=== PATIENT | male | born 1955 | race Caucasian/White ===

== ENCOUNTER 2017-09-05 09:21 | Emergency (ER) | payer OTHER ==
--- NOTE | 2017-09-05 09:45 | EDM.PDOC ---
ED HPI GENERAL MEDICAL PROBLEM - General Chief Complaint: Respiratory Problem Stated Complaint: cough, chills Time Seen by Provider: 09/05/17 09:24 Source of Information: Reports: Patient History Limitations: Reports: No Limitations - History of Present Illness INITIAL COMMENTS - FREE TEXT/NARRATIVE: Patient presents with cough, chills, sore throat and body aches that started yesterday. He did have the flu shot this season he says. He didn't check his temperature at home. Julian pretty rough all night and didn't sleep much. - Related Data Allergies Allergy/AdvReac Type Severity Reaction Status Date / Time No Known Drug Allergies Allergy Cannot Verified 09/05/17 09:42 Remember No Known Drug Intolerances Allergy Cannot Verified 09/05/17 09:42 Remember ED ROS GENERAL - Review of Systems Review Of Systems: See Below Constitutional: Reports: Chills HEENT: Reports: Throat Pain. Denies: Ear Discharge, Ear Pain, Vision Change Respiratory: Reports: Cough, Sputum. Denies: Shortness of Breath Cardiovascular: Denies: Chest Pain, Lightheadedness, Syncope GI/Abdominal: Denies: Abdominal Pain, Diarrhea, Vomiting : Denies: Dysuria Musculoskeletal: Reports: No Symptoms Skin: Denies: Cyanosis, Jaundice, Mottled, Pallor, Diaphoresis Neurological: Denies: Confusion, Dizziness, Headache, Seizure, Syncope, Trouble Speaking, Difficulty Walking Psychiatric: Denies: Agitation, Anxiety, Confusion ED EXAM, GENERAL - Physical Exam Exam: See Below Exam Limited By: No Limitations General Appearance: Alert, WD/WN, No Apparent Distress Eye Exam: Bilateral Eye: EOMI, Normal Inspection, PERRL Ears: Normal External Exam, Hearing Grossly Normal Nose: Normal Inspection, No Blood Throat/Mouth: Normal Inspection, Normal Lips, Normal Oropharynx, Normal Voice, No Airway Compromise Head: Atraumatic, Normocephalic Neck: Normal Inspection, Full Range of Motion Respiratory/Chest: No Respiratory Distress, Lungs Clear, Normal Breath Sounds, No Accessory Muscle Use, Chest Non-Tender. No: Decreased Breath Sounds, Crackles, Rales, Rhonchi, Wheezing, Stridor Cardiovascular: Regular Rate, Rhythm, No Murmur GI/Abdominal: No Distention Back Exam: No: CVA Tenderness (L), CVA Tenderness (R) Neurological: Alert, Oriented, Normal Cognition, No Motor/Sensory Deficits Psychiatric: Normal Affect, Normal Mood Skin Exam: Warm, Dry, Intact, Normal Color, No Rash Course - Vital Signs Last Recorded V/S: Last Vital Signs Temp 100.6 F 09/05/17 09:29 Pulse 83 09/05/17 09:29 Resp 18 09/05/17 09:29 BP 148/84 H 09/05/17 09:29 Pulse Ox 95 09/05/17 09:29 - Orders/Labs/Meds Labs: Laboratory Tests 09/05/17 09/05/17 Range/Units 09:30 09:30 WBC 5.9 (5.0-10.0) 10^3/uL RBC 4.55 (4.50-6.00) 10^6/uL Hgb 14.3 (13.0-17.0) g/dL Hct 43.4 (40.0-52.0) % MCV 95.4 H (82.0-92.0) fL MCH 31.5 H (27.0-31.0) pg MCHC 33.1 (32.0-36.0) g/dL RDW 12.8 (11.5-14.5) % Plt Count 224 (150-300) 10^3/uL MPV 8.4 (7.4-10.4) fL Neut % (Auto) 71.6 H (50.0-70.0) % Lymph % (Auto) 14.2 L (20.0-40.0) % [place] % (Auto) 13.5 H (2.0-8.0) % Eos % (Auto) 0.4 L (1.0-3.0) % Baso % (Auto) 0.3 (0.0-1.0) % Neut # (Auto) 4.3 (2.5-7.0) 10^3/uL Lymph # (Auto) 0.8 L (1.0-4.0) 10^3/uL [place] # (Auto) 0.8 (0.1-0.8) 10^3/uL Eos # (Auto) 0.0 L (0.1-0.3) 10^3/uL Baso # (Auto) 0.0 (0.0-0.1) 10^3/uL Sodium 140 (136-145) mmol/L Potassium 4.5 (3.3-5.3) mmol/L Chloride 102 (98-115) mmol/L Carbon Dioxide 26.0 (21.0-32.0) mmol/L BUN 18 (6-25) mg/dL Creatinine 1.19 H (0.51-1.17) mg/dL Est Cr Clr Drug Dosing 65.60 mL/min Estimated GFR (MDRD) > 60 mL/min Glucose 287 H (70-110) mg/dL Calcium 8.9 (8.7-10.3) mg/dL - Re-Assessments/Exams Free Text/Narrative Re-Assessment/Exam: 09/05/17 10:13 Influenza negative. Glucose is high and we discussed this. He normally runs in the low 100's and takes just metformin. I advised followup with his PCP for this as well. Patient discharged in stable condition. Departure - Departure Time of Disposition: 10:09 Disposition: Home, Self-Care 01 Condition: Good Clinical Impression: URI (upper respiratory infection) Qualifiers: URI type: unspecified viral URI Qualified Code(s): J06.9 - Acute upper respiratory infection, unspecified - Discharge Information Instructions: Upper Respiratory Infection, Adult, [id number] Forms: ED Department Discharge Additional Instructions: 1. Drink 8 cups of water daily. 2. Keep warm and get plenty of rest as this will help your immune system eradicate the virus as quickly as possible. 3. You can use Robitussin syrup or Mucinex tablets to help loosen phlegm and clear the lungs. Use the plain forms, unless you want to reduce coughing then the Robitussin DM or Mucinex DM will help reduce coughing. 4. Followup with your PCP in 3-4 days if not improving or sooner if worsening.
[2017-09-05 10:02] LABS: CHLORIDE,CL 102 mmol/L (98-115); SODIUM,NA 140 mmol/L (136-145)
== END 2017-09-05 10:30 | disposition home or self-care (01) ==
LOC: KA.ED 09:21
DX: J06.9 Acute upper respiratory infection, unspecified (principal)
CPT/HCPCS: 36415; 80048; 85025; 87804; 99283

== ENCOUNTER 2024-10-31 03:00 | Emergency (ER) | payer MEDICARE, OTHER ==
[2024-10-31 07:19] LABS: APPEARANCE,URINE CLEAR (CLEAR); BILIRUBIN,URINE NEGATIVE (NEGATIVE); COLOR,URINE YELLOW (YELLOW); GLUCOSE,URINE 500 mg/dL (NEGATIVE); KETONES,URINE NEGATIVE (NEGATIVE); LEUKOCYTE ESTERASE,URINE NEGATIVE (NEGATIVE); NITRITE,URINE NEGATIVE (NEGATIVE); OCCULT BLOOD,URINE LARGE (NEGATIVE); PH,URINE 6.5 (5.0-9.0); PROTEIN,URINE TRACE mg/dL (NEGATIVE); UROBILINOGEN,URINE 0.2 E.U./dL (0.2-1.0)
[2024-10-31 07:20] LABS: EPITHELIAL CELLS,URINE RARE /LPF; WBC,URINE 0-5 /HPF (0-5)
[2024-10-31 07:21] LABS: BACTERIA,URINE RARE /HPF (NONE TO FEW); OTHER CRYSTALS,URINE RARE /HPF
== END 2024-10-31 04:28 | disposition home or self-care (01) ==
LOC: KA.ED 03:00
DX: R33.9 Retention of urine, unspecified (principal); E78.00 Pure hypercholesterolemia, unspecified; E11.9 Type 2 diabetes mellitus without complications
CPT/HCPCS: 51702; 81001; 99284